=== PATIENT | female | born 1970 | race African-American/Black ===

== ENCOUNTER 2016-05-23 13:11 | Emergency (ER) | payer OTHER ==
[~2016-05-23] VITALS: Ht 157.5 cm; Wt 63.5 kg
[~2016-05-23 13:11] MED LIST: IBUPROFEN800 M1 PO; PERCOCET 5-3251 EACH PO; PREDNISONE20 MG PO; TRAMADOL50 MG PO
--- NOTE | 2016-05-23 13:50 | ED UPPER/LOWER EXTREMITY COMPL ---
History of Present Illness General Chief Complaint: Low Back Pain/Injury Stated Complaint: RT KNEE PAIN/CHRONIC Source: patient Exam Limitations: no limitations Vital Signs & Intake/Output Vital Signs & Intake/Output Vital Signs Date Time Temp Pulse Resp B/P Pulse O2 O2 Flow FiO2 Ox Delivery Rate 05/23 1524 80 16 112/70 99 Room Air 05/23 1322 98.5 84 18 113/63 96 Room Air Allergies Coded Allergies: NO KNOWN ALLERGIES (10/22/15) Reconcile Medications Ibuprofen 800 MG TABLET 800 MG PO Q6P PRN PAIN Ketorolac Tromethamine 10 MG TABLET 1 TAB PO TID PRN PAIN Oxycodone HCl/Acetaminophen (Percocet 5-325 MG Tablet) 1 EACH TABLET 1 TAB PO Q4P PRN PAIN Triage Note: RECEIVED 45 YO FEMALE C/O RIGHT KNEE PAIN STARTED WEDNESDAY, WORSE WITH WEIGHT BEARING. PT HAS HX OF R KNEE PAIN. NO KNOWN INJURY OR TRAUMA Triage Nurses Notes Reviewed? yes Onset: Abrupt Duration: constant Timing: recent history Severity: severe Severity Numbers: 7 HPI: Patient is a 45-year-old female with a past medical history of right knee pain however she denies any history of fracture or surgical intervention states that she played soccer for many years who presents emergency room stating that she woke up on Wednesday 3 days ago and noted pain localized to the right knee with symptoms of swelling. Patient denies any mechanism injury. Denies any distal leg swelling or pedal edema. Denies redness or warmth to the knee. Denies any fever chills. Denies any hip pain. Patient has been taking ibuprofen last dose was no relief of symptoms. Patient states that she limps when she walks and ambulation and knee movements make worse (ABIGAIL MCKEON) Past History Travel History Traveled to [place] past 21 day No Medical History Any Pertinent Medical History? see below for history Neurological: NONE Cardiovascular: NONE Respiratory: asthma, pneumonia, TB A CHILD Gastrointestinal: NONE Hepatic: NONE Renal: NONE Musculoskeletal: osteoarthritis Psychiatric: NONE Endocrine: NONE Blood Disorders: NONE Cancer(s): NONE [employer]ER/Reproductive: SCOTT History of MRSA: No History of VRE: No History of CDIFF: No Surgical History Surgical History: non-contributory Psychosocial History What is your primary language Monegasque Tobacco Use: Never used Family History Hx Contributory? No (ABIGAIL MCKEON) Review of Systems Review of Systems Constitutional: Reports: no symptoms. EENTM: Reports: no symptoms. Respiratory: Reports: no symptoms. Cardiovascular: Reports: no symptoms. Gastrointestinal/Abdominal: Reports: no symptoms. Genitourinary: Reports: no symptoms. Musculoskeletal: Reports: see HPI, joint pain, joint swelling. Skin: Reports: no symptoms. Neurological/Psychological: Reports: no symptoms. Hematologic/Endocrine: Reports: no symptoms. Immunological: Reports: no symptoms. All Other Systems: Reviewed and Negative (ABIGAIL MCKEON) Physical Exam Physical Exam General Appearance: no apparent distress, alert, comfortable Neurologic/Tendon: normal sensation, normal motor functions, normal tendon functions, responds to pain, no evidence tendon injury Skin: intact, normal color, warm/dry Comments: Well-developed well-nourished no apparent distress. HEENT: Atraumatic, extraocular motion intact Neck: Supple, no lymphadenopathy Back: Nontender Respiratory: No respiratory distress Extremities: Right hip normal inspection nontender full active range of motion straight leg raise performed Right knee noted generalized tenderness and mild swelling No erythema no warmth noted Decreased active range of motion noted with 60 of knee flexion and full extension noted Negative valgus stress test negative varus stress test negative anterior drawer test negative posterior drawer test Right lower extremity mid gastrocnemius noted circumference to be 34 cm compared bilaterally 34 cm to left mid gastrocnemius Right lower extremity dermatomes intact PEDAL pulses +2 Neuro: Alert and oriented x3 Psych: Mood affect normal, normal memory normal judgment. (ABIGAIL MCKEON) Progress Differential Diagnosis: arterial insufficiency, CHF, contusion, dislocation, DVT , fracture, gout, septic arthritis, sprain, tendon injury Plan of Care: Orders Procedure Date/time Status Durable Medical Equipment 05/23 1505 Active Patient denies any mechanism injury and no signs at this time of septic arthritis. X-rays were resulted showing no concerns of osseous injury or fracture. An Alex wrap was placed by me to the right knee which pre and post neurovascular was intact crutches were instructed until weightbearing is tolerable patienT (ABIGAIL MCKEON) Diagnostic Imaging: Viewed by Me: Radiology Read. Radiology Impression: no fracture Comments: PATIENT: KIERA PALMER PRESENT AGE: 45 PATIENT ACCOUNT NO: [id number] : 68 LOCATION: [facility] ORDERING PHYSICIAN: ABIGAIL LUCERO SERVICE DATE: 02/11/17-1324 EXAM TYPE: RAD - XRY-KNEE COMPLETE RIGHT EXAMINATION: XR KNEE, RIGHT CLINICAL INFORMATION: Right knee pain for 3 days, worse with weightbearing. COMPARISON: None TECHNIQUE: Four views of the right knee. Total of 5 images. FINDINGS: Minimal asymmetric decreased joint space, subchondral sclerosis, consistent with mild osteoarthrosis is present at the medial compartment of the right knee. The lateral, the patellofemoral compartments are unremarkable. There is no joint effusion present. No focal osseous abnormality or soft tissue abnormality is identified. IMPRESSION: Mild osteoarthrosis involving the medial compartment of the right knee. No radiographic evidence of any superimposed joint effusion or acute fracture and/or dislocation. (ABIGAIL MCKEON) Departure Departure Disposition: HOME OR SELF CARE Condition: Stable Clinical Impression Primary Impression: Right knee pain Referrals: AARON COLBY,DEMETRIA (PCP/Family) LIZ COLBY,DIAMOND Additional Instructions: As discussed begin icing the area directly 20 minutes every 2 hours. Begin the prescription at ketorolac for pain and inflammation. Begin using the Alex wrap for swelling. Begin using the crutches until YOU can walk without pain. If no better in one week follow up with orthopedic Dr. Anthony. If symptoms worsen return to emergency room. Prescription is waiting at [facility] pharmacy. Departure Forms: Customer Survey General Discharge Information Prescriptions: Current Visit Scripts Ketorolac Tromethamine 1 TAB PO TID PRN PAIN #15 TAB (ABIGAIL MCKEON) PA/[employer]CK[employer] Co-Sign Statement Statement: ED Attending supervision documentation- [] I saw and evaluated the patient. I have also reviewed all the pertinent lab results and diagnostic results. I agree with the findings and the plan of care as documented in the PA's/AUTOMOBILE WRECKER's documentation. x I have reviewed the ED Record and agree with the PA's/AUTOMOBILE WRECKER's documentation. [] Additions or exceptions (if any) to the PAs/AUTOMOBILE WRECKER's note and plan are summarized below: [] (RANDA COLBY,RICH)
--- NOTE | 2016-05-23 15:02 | RADIOLOGY REPORT ---
EXAMINATION: XR KNEE, RIGHT CLINICAL INFORMATION: Right knee pain for 3 days, worse with weightbearing. COMPARISON: None TECHNIQUE: Four views of the right knee. Total of 5 images. FINDINGS: Minimal asymmetric decreased joint space, subchondral sclerosis, consistent with mild osteoarthrosis is present at the medial compartment of the right knee. The lateral, the patellofemoral compartments are unremarkable. There is no joint effusion present. No focal osseous abnormality or soft tissue abnormality is identified. IMPRESSION: Mild osteoarthrosis involving the medial compartment of the right knee. No radiographic evidence of any superimposed joint effusion or acute fracture and/or dislocation.
[2016-05-23] MEDS ORDERED: KETOROLAC TROME10 M1 PO (15:19)
[2016-05-23 15:24] VITALS: BP 112/70
== END 2016-05-23 15:25 ==
LOC: ERH 13:11
DX: M25.561 Pain in right knee (principal)
CPT/HCPCS: 73562-RT; 96372; J1885